=== PATIENT | female | born 1940 | race Caucasian/White ===

== ENCOUNTER → 2018-11-19 | Outpatient (CLI) | payer MEDICARE, OTHER ==
[~2018-11-19] MED LIST: ASA81BEC PO; ATENOLOL 25 MG25 M1 PO; BENADRYL25 MG PO; BENTYL 10 MG CA10 MG PO; CALCIUM 600 +1 EAC1 PO; CENTRUM SILVER1 EAC2 PO; CENTRUM SILVER1 EAC3 PO; CENTRUM SILVER1 EAC4 PO; CIPRO250 M1 PO; COLACE100 MG PO; FISH OIL 1,001000 M2 PO; IBUPROFEN 200200 M1 PO; LISINOPRIL20 MG PO; MIRALAX17 GM PO; ONCE DAILY1 EAC1 PO; PRILOSEC 20 MG20 MG PO; TYLENOL325 MG PO
== END ==
LOC: M.RAD 11-13 16:28
DX: Z12.31 Encounter for screening mammogram for malignant neoplasm of breast (principal); M81.0 Age-related osteoporosis without current pathological fracture; Z90.710 Acquired absence of both cervix and uterus; Z90.722 Acquired absence of ovaries, bilateral

== ENCOUNTER 2021-04-11 09:29 | Emergency (ER) | payer MEDICARE, OTHER ==
[~2021-04-11] VITALS: Ht 160 cm; Wt 81.2 kg
[2021-04-11 09:39] VITALS: BP 154/96
[2021-04-11] MEDS ORDERED: FUROSEMIDE 20 M20 MG PO (09:45)
[2021-04-11] MEDS ORDERED: SILDENAFIL20 MG PO (09:45)
[2021-04-11] MEDS ORDERED: BENICAR20 MG PO (09:45)
[2021-04-11] MEDS ORDERED: PRILOSEC OTC20 MG PO (09:46)
[2021-04-11] MEDS ORDERED: ADVIL200 M3 PO (09:46)
[2021-04-11] MEDS ORDERED: PRESERVISION A1 EAC2 PO (09:46)
[2021-04-11] MEDS ORDERED: SUPER THERAVIT1 EACH PO (09:46)
[2021-04-11] MEDS ORDERED: KRILL OIL 5001 EAC1 PO (09:47)
[2021-04-11] MEDS ORDERED: CALCIUM500 MG PO (09:47)
== END 2021-04-11 12:19 | disposition home or self-care (01) ==
LOC: M.ERS 09:29
DX: S93.692A Other sprain of left foot, initial encounter (principal); I10 Essential (primary) hypertension; Z90.710 Acquired absence of both cervix and uterus; Z88.8 Allergy status to other drugs, medicaments and biological substances; X50.9XXA Other and unspecified overexertion or strenuous movements or postures, initial encounter; Y93.89 Activity, other specified; Y92.89 Other specified places as the place of occurrence of the external cause; Y99.8 Other external cause status